=== PATIENT | female | born 1955 | race African-American/Black ===

== ENCOUNTER 2019-07-26 21:43 | Inpatient (IN) | payer OTHER ==
[~2019-07-26] VITALS: Ht 180.3 cm; Wt 132.0 kg
[2019-07-26 22:36] LABS: PLATELET COUNT 297 x10^3mcL (130-400)
[2019-07-26 22:55] LABS: CALCIUM 9.1 mg/dL (8.5-10.1); CARBON DIOXIDE 26.5 mmol/L (21-32); CREATININE SERUM 2.5 mg/dL (0.6-1.0); POTASSIUM SERUM 5.4 mmol/L (3.5-5.1)
[2019-07-26 23:01] LABS: BILIRUBIN TOTAL 0.25 mg/dL (0.20-1.00); TOTAL PROTEIN, SERUM 7.8 g/dL (6.4-8.2)
[2019-07-26 23:03] LABS: ALBUMIN 2.9 g/dL (3.4-5.0)
[2019-07-26 23:21] LABS: BASOPHIL % 0 % (0-2)
[2019-07-26 23:23] LABS: RED CELL DISTRIBUTION WIDTH 24.7 % (11.5-14.5)
[2019-07-26 23:42] LABS: acanthocyte (spur cell) 1+; ovalocyte/elliptocyte 1+; rbc morphology (normal/abnorm) ABNORMAL (NORMAL); schistocyte (helmet cell) 1+; target cell (codocyte) 1+; tear drop cell (dacryocyte) 1+
[2019-07-27] VITALS (16 sets, daily range): BP systolic 115–144; BP diastolic 54–70
[2019-07-27] MEDS ORDERED: FERROUS SULFAT325 M2 PO (01:02)
[2019-07-27] MEDS ORDERED: ATORVASTATIN CA40 M1 PO (01:03)
[2019-07-27] MEDS ORDERED: MONTELUKAST SOD10 M1 PO (01:04)
[2019-07-27] MEDS ORDERED: CIMETIDINE300 MG PO (01:04)
[2019-07-27] MEDS ORDERED: FUROSEMIDE40 MG PO (01:05)
[2019-07-27] MEDS ORDERED: GLIPIZIDE10 M2 PO (01:05)
[2019-07-27] MEDS ORDERED: CARVEDILOL3.125 M1 PO (01:05)
[2019-07-27] MEDS ORDERED: NOR10 PO (01:06)
[2019-07-27] MEDS ORDERED: SPIRIVA18 MC1 INH (01:07)
[2019-07-27 03:16] LABS: MAGNESIUM 2.9 mg/dL (1.8-2.4); PHOSPHOROUS 4.8 mg/dL (2.5-4.9)
[2019-07-27 03:20] LABS: FREE T4 1.18 ng/dL (0.76-1.46); FREE THYROXINE INDEX 3.3 ug/dL (1.4-4.5); T4(THYROXINE) 9.8 ug/dL (4.7-13.3)
[2019-07-27 03:23] LABS: CHOLESTEROL/HDL RATIO 3.7
[2019-07-27 05:04] LABS: T3 TOTAL 0.91 ng/mL
[2019-07-27 05:40] LABS: UA SPECIFIC GRAVITY >=1.030 (1.005-1.035); microscopic required? YES; urine erythrocyte NEGATIVE (NEGATIVE)
[2019-07-27 05:45] LABS: PLATELET COUNT 267 x10^3mcL (130-400)
[2019-07-27 05:49] LABS: AMPHETAMINE QUAL UR NONE DETECTED (See below)
[2019-07-27 05:50] LABS: BASOPHIL % 0 % (0-2)
[2019-07-27 05:54] LABS: RED CELL DISTRIBUTION WIDTH 24.2 % (11.5-14.5)
[2019-07-27 06:02] LABS: CALCIUM 8.8 mg/dL (8.5-10.1); CARBON DIOXIDE 26.7 mmol/L (21-32); CREATININE SERUM 2.3 mg/dL (0.6-1.0); MAGNESIUM 2.7 mg/dL (1.8-2.4); PHOSPHOROUS 5.3 mg/dL (2.5-4.9)
[2019-07-27 06:06] LABS: acanthocyte (spur cell) 1+; ovalocyte/elliptocyte 1+; rbc morphology (normal/abnorm) ABNORMAL (NORMAL); schistocyte (helmet cell) 1+; target cell (codocyte) 1+; tear drop cell (dacryocyte) 1+
[2019-07-27 06:13] LABS: POTASSIUM SERUM 5.8 mmol/L (3.5-5.1)
[2019-07-27 10:47] LABS: CALCIUM 8.7 mg/dL (8.5-10.1); CREATININE SERUM 2.4 mg/dL (0.6-1.0)
[2019-07-27 10:57] LABS: POTASSIUM SERUM 5.9 mmol/L (3.5-5.1)
[2019-07-27 19:15] LABS: CALCIUM 8.4 mg/dL (8.5-10.1); CARBON DIOXIDE 27.3 mmol/L (21-32); CREATININE SERUM 2.4 mg/dL (0.6-1.0)
[2019-07-27 19:18] LABS: POTASSIUM SERUM 6.8 mmol/L (3.5-5.1)
[2019-07-28] VITALS (19 sets, daily range): BP systolic 112–177; BP diastolic 56–77
[2019-07-28 06:14] LABS: CALCIUM 8.4 mg/dL (8.5-10.1); CARBON DIOXIDE 28.8 mmol/L (21-32); MAGNESIUM 2.6 mg/dL (1.8-2.4); PHOSPHOROUS 5.6 mg/dL (2.5-4.9)
[2019-07-28 06:15] LABS: POTASSIUM SERUM 6.3 mmol/L (3.5-5.1)
[2019-07-28 06:42] LABS: BASOPHIL % 0.1 % (0-2); PLATELET COUNT 243 x10^3mcL (130-400)
[2019-07-28 08:48] LABS: RED CELL DISTRIBUTION WIDTH 23.6 % (11.5-14.5)
[2019-07-28 08:49] LABS: rbc morphology (normal/abnorm) ABNORMAL (NORMAL)
[2019-07-28 09:43] LABS: CALCIUM 8.4 mg/dL (8.5-10.1)
[2019-07-28 09:46] LABS: POTASSIUM SERUM 5.8 mmol/L (3.5-5.1)
[2019-07-29] VITALS (17 sets, daily range): BP systolic 155–194; BP diastolic 59–75
[2019-07-29 06:12] LABS: CALCIUM 8.5 mg/dL (8.5-10.1); CARBON DIOXIDE 28.6 mmol/L (21-32); CREATININE SERUM 1.8 mg/dL (0.6-1.0); MAGNESIUM 2.5 mg/dL (1.8-2.4); PHOSPHOROUS 4.9 mg/dL (2.5-4.9)
[2019-07-29 06:18] LABS: PLATELET COUNT 226 x10^3mcL (130-400); POTASSIUM SERUM 5.9 mmol/L (3.5-5.1)
[2019-07-29 07:17] LABS: RED CELL DISTRIBUTION WIDTH 23.8 % (11.5-14.5)
[2019-07-29 11:42] LABS: BAND NEUTROPHIL 0 % (0-10); MONOCYTE 1 % (0-7); SEGMENTED NEUTROPHILS 98 % (37-75)
[2019-07-29 11:43] LABS: PLATELET MORPHOLOGY PLATELETS INCREASED; rbc morphology (normal/abnorm) ABNORMAL (NORMAL)
[2019-07-29 18:37] LABS: CALCIUM 8.6 mg/dL (8.5-10.1); CARBON DIOXIDE 28.4 mmol/L (21-32); CREATININE SERUM 1.5 mg/dL (0.6-1.0); POTASSIUM SERUM 5.1 mmol/L (3.5-5.1)
[2019-07-30] VITALS (16 sets, daily range): BP systolic 154–181; BP diastolic 59–73
[2019-07-30 05:08] LABS: CALCIUM 9.1 mg/dL (8.5-10.1); CARBON DIOXIDE 27.2 mmol/L (21-32); CREATININE SERUM 1.5 mg/dL (0.6-1.0); MAGNESIUM 2.6 mg/dL (1.8-2.4); PHOSPHOROUS 4.3 mg/dL (2.5-4.9); POTASSIUM SERUM 5.3 mmol/L (3.5-5.1)
[2019-07-30 05:29] LABS: BASOPHIL % 0.1 % (0-2); PLATELET COUNT 198 x10^3mcL (130-400)
[2019-07-30 05:31] LABS: RED CELL DISTRIBUTION WIDTH 23.2 % (11.5-14.5)
[2019-07-31] VITALS (17 sets, daily range): BP systolic 151–189; BP diastolic 55–69; Ht 180.3 cm; Wt 132.0 kg
[2019-07-31 05:08] LABS: PLATELET COUNT 192 x10^3mcL (130-400)
[2019-07-31 05:19] LABS: BASOPHIL % 0 % (0-2)
[2019-07-31 05:38] LABS: CARBON DIOXIDE 28.2 mmol/L (21-32); CREATININE SERUM 1.5 mg/dL (0.6-1.0); POTASSIUM SERUM 5.2 mmol/L (3.5-5.1)
[2019-07-31 05:39] LABS: MAGNESIUM 2.6 mg/dL (1.8-2.4); PHOSPHOROUS 4.4 mg/dL (2.5-4.9)
[2019-08-01] VITALS (13 sets, daily range): BP systolic 146–173; BP diastolic 19–69
[2019-08-01 06:03] LABS: PLATELET COUNT 194 x10^3mcL (130-400)
[2019-08-01 06:14] LABS: RED CELL DISTRIBUTION WIDTH 22.8 % (11.5-14.5)
[2019-08-01 06:16] LABS: POTASSIUM SERUM 5.1 mmol/L (3.5-5.1)
[2019-08-01 06:17] LABS: CALCIUM 9.1 mg/dL (8.5-10.1); CARBON DIOXIDE 28.3 mmol/L (21-32); CREATININE SERUM 1.5 mg/dL (0.6-1.0); MAGNESIUM 2.5 mg/dL (1.8-2.4)
[2019-08-01 08:23] LABS: MONOCYTE 5 % (0-7); SEGMENTED NEUTROPHILS 88 % (37-75)
[2019-08-01 08:32] LABS: rbc morphology (normal/abnorm) ABNORMAL (NORMAL)
[2019-08-02 03:12] VITALS: BP 165/55
[2019-08-02 06:17] LABS: PLATELET COUNT 198 x10^3mcL (130-400)
[2019-08-02 06:25] LABS: BASOPHIL % 0 % (0-2); RED CELL DISTRIBUTION WIDTH 22.3 % (11.5-14.5)
[2019-08-02 06:55] LABS: CARBON DIOXIDE 29.8 mmol/L (21-32); POTASSIUM SERUM 5.1 mmol/L (3.5-5.1)
[2019-08-02 08:11] LABS: CREATININE SERUM 1.4 mg/dL (0.6-1.0)
[2019-08-02 08:12] LABS: CALCIUM 9.6 mg/dL (8.5-10.1); MAGNESIUM 2.5 mg/dL (1.8-2.4); PHOSPHOROUS 4.5 mg/dL (2.5-4.9)
[2019-08-02 08:13] VITALS: BP 169/59
[2019-08-02 12:05] VITALS: BP 170/59
[2019-08-02 15:31] VITALS: BP 127/51
[2019-08-02 20:45] VITALS: BP 158/48
[2019-08-03 05:56] VITALS: BP 162/52
[2019-08-03 07:22] LABS: PLATELET COUNT 209 x10^3mcL (130-400)
[2019-08-03 08:05] LABS: RED CELL DISTRIBUTION WIDTH 22.1 % (11.5-14.5)
[2019-08-03 08:22] LABS: CALCIUM 9.7 mg/dL (8.5-10.1); CARBON DIOXIDE 28.2 mmol/L (21-32); CREATININE SERUM 1.3 mg/dL (0.6-1.0); MAGNESIUM 2.5 mg/dL (1.8-2.4); PHOSPHOROUS 4.2 mg/dL (2.5-4.9); POTASSIUM SERUM 5.1 mmol/L (3.5-5.1)
[2019-08-03 08:36] VITALS: BP 171/53
[2019-08-03 11:12] LABS: BAND NEUTROPHIL 0 % (0-10); MONOCYTE 3 % (0-7); SEGMENTED NEUTROPHILS 95 % (37-75)
[2019-08-03 11:13] LABS: PLATELET MORPHOLOGY PLATELETS DECREASED
[2019-08-03 11:14] LABS: ovalocyte/elliptocyte 2+; rbc morphology (normal/abnorm) ABNORMAL (NORMAL)
[2019-08-03 12:20] VITALS: BP 180/63
[2019-08-03 17:05] VITALS: BP 159/53
[2019-08-03 21:06] VITALS: BP 171/59
[2019-08-04 05:59] VITALS: BP 155/68
[2019-08-04 06:48] LABS: BASOPHIL % 0.2 % (0-2); PLATELET COUNT 214 x10^3mcL (130-400)
[2019-08-04 08:00] LABS: POTASSIUM SERUM 4.6 mmol/L (3.5-5.1)
[2019-08-04 08:05] LABS: CALCIUM 9.4 mg/dL (8.5-10.1); CREATININE SERUM 1.2 mg/dL (0.6-1.0); MAGNESIUM 2.1 mg/dL (1.8-2.4); PHOSPHOROUS 3.7 mg/dL (2.5-4.9)
[2019-08-04 09:10] VITALS: BP 152/49
[2019-08-04 13:15] VITALS: BP 158/58
[2019-08-04 17:31] VITALS: BP 166/56
[2019-08-04 20:55] VITALS: BP 157/46
[2019-08-05 06:25] VITALS: BP 152/48
[2019-08-05 08:53] VITALS: BP 162/48
[2019-08-05 13:44] VITALS: BP 163/85
[2019-08-05 15:36] VITALS: BP 116/51
[2019-08-05] MEDS ORDERED: APR50 PO (17:30)
[2019-08-05] MEDS ORDERED: PRI20 PO (17:30)
[2019-08-05] MEDS ORDERED: LAC PO (17:31)
[2019-08-05] MEDS ORDERED: MILLIPRED5 M1 PO (17:33)
[2019-08-05] MEDS ORDERED: NEP PO (17:34)
[2019-08-05 19:40] VITALS: BP 163/53
== END 2019-08-06 00:20 | DRG 133 ==
LOC: ED 21:43 → DU 23:16 → IC 23:16 → DU 08-02 17:08
PROVIDERS: Emergency Medicine; Internal Medicine; ADMIT Family Medicine
PROC: 5A1945Z Respiratory Ventilation, 24-96 Consecutive Hours (ICD-10-PCS; principal; 2019-07-26)
PROC: 0BH17EZ Insertion of Endotracheal Airway into Trachea, Via Natural or Artificial Opening (ICD-10-PCS; 2019-07-26)
PROC: 05HM33Z Insertion of Infusion Device into Right Internal Jugular Vein, Percutaneous Approach (ICD-10-PCS; 2019-07-28)
PROC: B543ZZA Ultrasonography of Right Jugular Veins, Guidance (ICD-10-PCS; 2019-07-28)
DX: J96.21 Acute and chronic respiratory failure with hypoxia (principal); N17.0 Acute kidney failure with tubular necrosis; J18.9 Pneumonia, unspecified organism; E44.0 Moderate protein-calorie malnutrition; E11.21 Type 2 diabetes mellitus with diabetic nephropathy; I42.9 Cardiomyopathy, unspecified; E11.65 Type 2 diabetes mellitus with hyperglycemia; E66.01 Morbid (severe) obesity due to excess calories; E87.2 Acidosis; N18.4 Chronic kidney disease, stage 4 (severe); I12.9 Hypertensive chronic kidney disease with stage 1 through stage 4 chronic kidney disease, or unspecified chronic kidney disease; E11.22 Type 2 diabetes mellitus with diabetic chronic kidney disease; J44.1 Chronic obstructive pulmonary disease with (acute) exacerbation; E87.5 Hyperkalemia; F12.10 Cannabis abuse, uncomplicated; F14.21 Cocaine dependence, in remission; F17.210 Nicotine dependence, cigarettes, uncomplicated; I25.10 Atherosclerotic heart disease of native coronary artery without angina pectoris; I25.2 Old myocardial infarction; Z99.2 Dependence on renal dialysis; Z79.4 Long term (current) use of insulin; Z99.81 Dependence on supplemental oxygen; Z68.39 Body mass index [BMI] 39.0-39.9, adult; Z79.84 Long term (current) use of oral hypoglycemic drugs
CPT/HCPCS: 31500; 36600; 82962; 83880; 84439; 85378; 87804; 94150; 97116-GP; A4628; A9540; C9113; G0378; J0360; J0456; J0610; J1170; J1642; J1644; J1815; J1940; J1956; J2001; J2060; J2250; J2405; J2704; J2920; J3010; J3370; J3490; J7030; J7040; J7050; J7620; J7626; Q0092

== ENCOUNTER 2019-08-25 14:31 | Inpatient (IN) | payer OTHER ==
[~2019-08-25] VITALS: Ht 180.3 cm; Wt 122.6 kg
[~2019-08-25 14:31] MED LIST: APR50 PO; ATORVASTATIN CA40 M1 PO; CARVEDILOL3.125 M1 PO; CIMETIDINE300 MG PO; FERROUS SULFAT325 M2 PO; FUROSEMIDE40 MG PO; GLIPIZIDE10 M2 PO; LAC PO; MILLIPRED5 M1 PO; MONTELUKAST SOD10 M1 PO; NEP PO; NOR10 PO; PRI20 PO; SPIRIVA18 MC1 INH
[2019-08-25 15:58] LABS: CALCIUM 9.5 mg/dL (8.5-10.1); CARBON DIOXIDE 22.6 mmol/L (21-32); CREATININE SERUM 3.5 mg/dL (0.6-1.0)
[2019-08-25 16:04] LABS: POTASSIUM SERUM 6.9 mmol/L (3.5-5.1)
[2019-08-25 16:08] LABS: BASOPHIL % 0 % (0-2); PLATELET COUNT 300 x10^3mcL (130-400); RED CELL DISTRIBUTION WIDTH 20.8 % (11.5-14.5)
[2019-08-25 16:29] LABS: rbc morphology (normal/abnorm) ABNORMAL (NORMAL)
[2019-08-25 17:16] LABS: CHOLESTEROL/HDL RATIO 3.5; MAGNESIUM 3.3 mg/dL (1.8-2.4); PHOSPHOROUS 4.5 mg/dL (2.5-4.9)
[2019-08-25 18:00] LABS: UA SPECIFIC GRAVITY 1.015 (1.005-1.035); microscopic required? YES; urine erythrocyte NEGATIVE (NEGATIVE)
[2019-08-25 20:00] LABS: CARBON DIOXIDE 22.8 mmol/L (21-32); CREATININE SERUM 3.6 mg/dL (0.6-1.0)
[2019-08-25 20:11] LABS: POTASSIUM SERUM 7.4 mmol/L (3.5-5.1)
[2019-08-25 21:30] VITALS: BP 137/46
[2019-08-25 21:56] VITALS: BP 124/70
[2019-08-25 23:27] VITALS: BP 126/51
[2019-08-26] VITALS (18 sets, daily range): BP systolic 95–151; BP diastolic 41–61
[2019-08-26 02:46] LABS: BASOPHIL % 0.1 % (0-2); PLATELET COUNT 309 x10^3mcL (130-400)
[2019-08-26 02:47] LABS: RED CELL DISTRIBUTION WIDTH 19.6 % (11.5-14.5)
[2019-08-26 02:52] LABS: CALCIUM 9.3 mg/dL (8.5-10.1); CARBON DIOXIDE 23.3 mmol/L (21-32)
[2019-08-26 03:01] LABS: POTASSIUM SERUM 7.7 mmol/L (3.5-5.1)
[2019-08-26 05:54] LABS: PLATELET COUNT 274 x10^3mcL (130-400)
[2019-08-26 06:00] LABS: BASOPHIL % 0 % (0-2); RED CELL DISTRIBUTION WIDTH 21.5 % (11.5-14.5)
[2019-08-26 06:02] LABS: CALCIUM 9.5 mg/dL (8.5-10.1); CARBON DIOXIDE 21.8 mmol/L (21-32); MAGNESIUM 3.2 mg/dL (1.8-2.4); PHOSPHOROUS 5.9 mg/dL (2.5-4.9)
[2019-08-26 06:18] LABS: POTASSIUM SERUM 7.6 mmol/L (3.5-5.1)
[2019-08-26 06:19] LABS: CREATININE SERUM 4.1 mg/dL (0.6-1.0)
[2019-08-26 13:04] LABS: CARBON DIOXIDE 24.8 mmol/L (21-32); CREATININE SERUM 3.3 mg/dL (0.6-1.0)
[2019-08-26 13:06] LABS: POTASSIUM SERUM 6.4 mmol/L (3.5-5.1)
[2019-08-26 18:37] LABS: CARBON DIOXIDE 23.1 mmol/L (21-32); CREATININE SERUM 3.3 mg/dL (0.6-1.0)
[2019-08-26 18:47] LABS: POTASSIUM SERUM 6.1 mmol/L (3.5-5.1)
[2019-08-27] VITALS (12 sets, daily range): BP systolic 142–164; BP diastolic 54–68
[2019-08-27 00:07] LABS: CALCIUM 8.5 mg/dL (8.5-10.1); CARBON DIOXIDE 28.5 mmol/L (21-32); CREATININE SERUM 2.2 mg/dL (0.6-1.0); POTASSIUM SERUM 4.4 mmol/L (3.5-5.1)
[2019-08-27 05:41] LABS: PLATELET COUNT 267 x10^3mcL (130-400)
[2019-08-27 05:42] LABS: BASOPHIL % 0 % (0-2)
[2019-08-27 05:44] LABS: CALCIUM 8.8 mg/dL (8.5-10.1); CARBON DIOXIDE 28.5 mmol/L (21-32); MAGNESIUM 2.3 mg/dL (1.8-2.4); PHOSPHOROUS 4.1 mg/dL (2.5-4.9); POTASSIUM SERUM 4.6 mmol/L (3.5-5.1)
[2019-08-27 14:18] LABS: CALCIUM 8.8 mg/dL (8.5-10.1); CARBON DIOXIDE 29.7 mmol/L (21-32); CREATININE SERUM 1.8 mg/dL (0.6-1.0); POTASSIUM SERUM 4.4 mmol/L (3.5-5.1)
[2019-08-28] VITALS (7 sets, daily range): BP systolic 142–164; BP diastolic 49–55; Ht 180.3 cm; Wt 122.6 kg
[2019-08-28 05:17] LABS: PLATELET COUNT 271 x10^3mcL (130-400)
[2019-08-28 05:25] LABS: BASOPHIL % 0 % (0-2)
[2019-08-28 05:44] LABS: CALCIUM 8.6 mg/dL (8.5-10.1); CARBON DIOXIDE 30.4 mmol/L (21-32); CREATININE SERUM 1.6 mg/dL (0.6-1.0); MAGNESIUM 2.1 mg/dL (1.8-2.4); PHOSPHOROUS 3.3 mg/dL (2.5-4.9); POTASSIUM SERUM 4.4 mmol/L (3.5-5.1)
[2019-08-28 09:28] LABS: ovalocyte/elliptocyte 1+; rbc morphology (normal/abnorm) ABNORMAL (NORMAL); target cell (codocyte) 1+
[2019-08-29 05:08] VITALS: BP 171/60
[2019-08-29 06:34] LABS: PLATELET COUNT 275 x10^3mcL (130-400)
[2019-08-29 07:00] LABS: BASOPHIL % 0 % (0-2); RED CELL DISTRIBUTION WIDTH 20.3 % (11.5-14.5)
[2019-08-29 07:03] LABS: CALCIUM 9.1 mg/dL (8.5-10.1); CARBON DIOXIDE 33.4 mmol/L (21-32); CREATININE SERUM 1.4 mg/dL (0.6-1.0); MAGNESIUM 2.2 mg/dL (1.8-2.4); PHOSPHOROUS 3.7 mg/dL (2.5-4.9); POTASSIUM SERUM 4.2 mmol/L (3.5-5.1)
[2019-08-29 07:57] VITALS: BP 151/50
[2019-08-29 12:18] VITALS: BP 159/63
[2019-08-29 16:25] VITALS: BP 164/57
[2019-08-29 17:26] VITALS: BP 154/60
[2019-08-29 20:23] VITALS: BP 141/55
[2019-08-30 05:10] VITALS: BP 118/50
[2019-08-30 08:50] VITALS: BP 159/48
[2019-08-30 12:01] VITALS: BP 173/66
[2019-08-30 15:23] VITALS: BP 169/56
[2019-08-30 16:55] VITALS: BP 169/56
[2019-08-30 20:15] VITALS: BP 156/62
== END 2019-08-30 20:35 | DRG 469 ==
LOC: ED 14:31 → DU 17:00 → IC 17:00 → DU 08-28 18:18
PROVIDERS: Emergency Medicine; Internal Medicine; Student in an Organized Health Care Education/Training Program; ADMIT Internal Medicine
PROC: 5A1945Z Respiratory Ventilation, 24-96 Consecutive Hours (ICD-10-PCS; principal; 2019-08-26)
PROC: 0BH17EZ Insertion of Endotracheal Airway into Trachea, Via Natural or Artificial Opening (ICD-10-PCS; 2019-08-26)
PROC: 02HV33Z Insertion of Infusion Device into Superior Vena Cava, Percutaneous Approach (ICD-10-PCS; 2019-08-26)
PROC: B548ZZA Ultrasonography of Superior Vena Cava, Guidance (ICD-10-PCS; 2019-08-26)
PROC: 5A1D70Z Performance of Urinary Filtration, Intermittent, Less than 6 Hours Per Day (ICD-10-PCS; 2019-08-26)
DX: N17.9 Acute kidney failure, unspecified (principal); J96.21 Acute and chronic respiratory failure with hypoxia; J69.0 Pneumonitis due to inhalation of food and vomit; I50.33 Acute on chronic diastolic (congestive) heart failure; E11.22 Type 2 diabetes mellitus with diabetic chronic kidney disease; J44.1 Chronic obstructive pulmonary disease with (acute) exacerbation; N39.0 Urinary tract infection, site not specified; N18.9 Chronic kidney disease, unspecified; I13.0 Hypertensive heart and chronic kidney disease with heart failure and stage 1 through stage 4 chronic kidney disease, or unspecified chronic kidney disease; E87.1 Hypo-osmolality and hyponatremia; E87.8 Other disorders of electrolyte and fluid balance, not elsewhere classified; E66.2 Morbid (severe) obesity with alveolar hypoventilation; E11.65 Type 2 diabetes mellitus with hyperglycemia; J96.22 Acute and chronic respiratory failure with hypercapnia; D64.9 Anemia, unspecified; E83.41 Hypermagnesemia; E87.5 Hyperkalemia; I25.10 Atherosclerotic heart disease of native coronary artery without angina pectoris; I25.2 Old myocardial infarction; Z99.81 Dependence on supplemental oxygen; Z79.84 Long term (current) use of oral hypoglycemic drugs; Z88.0 Allergy status to penicillin; Z87.891 Personal history of nicotine dependence; Z68.38 Body mass index [BMI] 38.0-38.9, adult; Z79.899 Other long term (current) drug therapy
CPT/HCPCS: 36600; 82962; 83880; 92526-GN; 92610-GN; 97110-GP; 97116-GP; 97530-GP; A4628; G0378; J0360; J0461; J0610; J1642; J1644; J1815; J1940; J1956; J2060; J2250; J2270; J2704; J3010; J3490; J7030; J7050; J7613; J7620; Q0092